=== PATIENT | female | born 1930 | race Hispanic/Latino ===

== ENCOUNTER 2017-10-10 17:03 | Emergency (ER) | payer MEDICARE ==
[2017-10-10 17:40] LABS: Hematocrit 41.1 % (30.3-42.9); Hemoglobin 13.6 gm/dl (10.1-14.3); Mean Corpuscular HGB Conc 33 % (30-34); Mean Corpuscular Hemoglobin 28 pg (28-32); Mean Corpuscular Volume 86 fl (79-97); Platelet Count 226 K/mm3 (140-440); Red Blood Count 4.79 M/mm3 (3.65-5.03); Red Cell Distribution Width 13.2 % (13.2-15.2); White Blood Count 11.3 K/mm3 (4.5-11.0)
[2017-10-10 17:55] LABS: Calcium 9.2 mg/dL (8.4-10.2); Chloride 102.3 mmol/L (98-107); Potassium 4.5 mmol/L (3.6-5.0)
--- NOTE | 2017-10-10 18:16 | Cat Scan Report ---
FINAL REPORT EXAM: CT HEAD/BRAIN WO CON HISTORY: head injury TECHNIQUE: CT examination of the head without IV contrast PRIORS: None. 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 No acute air-fluid level visualized in the included air-filled sinuses. Bone windows demonstrate no acute fracture. There is ventricular and sulcal prominence compatible with global cerebrocortical atrophy. The brain contains no mass, mass effect, hemorrhage, or acute infarct. There is no extra-axial intracranial bleed, brain bleed, or midline shift. 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
[2017-10-10 18:19] LABS: INR 0.93 (0.87-1.13)
[2017-10-10 18:24] LABS: Partial Thromboplastin Time 31.5 Sec. (24.2-36.6)
[2017-10-10] MEDS ORDERED: XYLOCAINE 2% INFILTRATI ONE (19:14)
[2017-10-10] MEDS ORDERED: TYLENOL PO ONE (19:14)
--- NOTE | 2017-10-10 19:20 | Emergency Department Report ---
ED General Adult HPI - General Chief complaint: Head Injury Stated complaint: FALL/LAC TO HEAD Time Seen by Provider: 10/10/17 19:04 Source: patient Mode of arrival: Ambulatory Limitations: No Limitations - History of Present Illness Initial comments: 87-year-old female slip and fall. Patient was stepping over a step in the hallway when she slipped and faell here eval laceration to forehead. Patient states she did not have LOC family states she is at baseline has been acting appropriately no nausea vomiting no headache no neck pain. She is here for evaluation of a 2 cm laceration above the right eyebrow. She is also complaining of right elbow skin tear without bony tenderness. She denies any back pain any neck pain any chest pain and abdominal pain. She denies any focal neuro complaints no headache no weakness or numbness no visual complaintscomplaints. She is also complaining of a pain to the right great toe with contusion. She denies any other complaints at this time she denied chest pain she denied palpitations she denied any loss consciousness. -: Sudden Location: head, face, right, upper extremity, lower extremity Radiation: non-radiation Severity scale (0 -10): 6 Quality: sharp Associated Symptoms: denies: confusion, chest pain, cough, diaphoresis, fever/ chills, headaches, malaise, nausea/vomiting, seizure, shortness of breath, syncope, weakness - Related Data Allergies Allergy/AdvReac Type Severity Reaction Status Date / Time cefuroxime [From Ceftin] Allergy Unknown Verified 10/10/17 17:20 Penicillins Allergy Unknown Verified 10/10/17 17:20 ED Review of Systems ROS: Stated complaint: FALL/LAC TO HEAD Other details as noted in HPI Comment: All other systems reviewed and negative Constitutional: no symptoms reported. denies: diaphoresis, fever, malaise, weakness Eyes: denies: as per HPI, eye pain, eye discharge ENT: denies: dental pain Respiratory: no symptoms reported. denies: shortness of breath, SOB with exertion, SOB at rest Cardiovascular: denies: chest pain, palpitations, dyspnea on exertion, orthopnea , edema, syncope Gastrointestinal: denies: abdominal pain, nausea, vomiting, diarrhea, constipation, hematemesis, melena, hematochezia Musculoskeletal: as per HPI Neurological: denies: headache, weakness, numbness, paresthesias, confusion, abnormal gait, vertigo ED Past Medical Hx - Past Medical History Hx Psychiatric Treatment: Yes (anxiety) Additional medical history: bilateral knee pain,poor circulation,hearing aid - Surgical History Additional Surgical History: Fx left hip, neck surgery, heart stent - Social History Smoking Status: Never Smoker Substance Use Type: None ED Physical Exam - General Limitations: No Limitations General appearance: alert - Head Head exam: Present: other (2 cm laceration to the right eyebrow periorbital contusion and soft tissue swelling to the right eye) - Eye Eye exam: Present: normal appearance, PERRL, EOMI, other (no entrapment noted to the eyeballs and intact OS Bessy no hyphema. Anterior chamber negative) Pupils: Present: normal accommodation - ENT ENT exam: Present: normal exam, normal orophraynx, TM's normal bilaterally - Neck Neck exam: Present: normal inspection, full ROM, other (no midline bony tenderness nexus is negative). Absent: tenderness, meningismus - Respiratory Respiratory exam: Present: normal lung sounds bilaterally. Absent: respiratory distress, wheezes, rales, rhonchi, stridor, chest wall tenderness, accessory muscle use, decreased breath sounds, prolonged expiratory - Cardiovascular Cardiovascular Exam: Present: regular rate. Absent: rubs, gallop - GI/Abdominal GI/Abdominal exam: Present: soft. Absent: distended, tenderness, guarding, rebound, rigid, mass, bruit, pulsatile mass, hernia - Extremities Exam Extremities exam: Present: other (skin tear to the right elbow no bony tenderness. Range of motion neurovascular intact. Toe pain without deformitySkin intact. Extremity exam is within normal limits no crepitus or deformity all extremities are neurovascular intact) - Back Exam Back exam: Present: normal inspection. Absent: tenderness, CVA tenderness (R), CVA tenderness (L), muscle spasm, paraspinal tenderness, vertebral tenderness - Skin Skin exam: Absent: diaphoretic, erythema, urticaria, petechiae, pallor, abrasion , ecchymosis ED Course Vital Signs 10/10/17 10/10/17 17:11 17:18 Temperature 98.3 F 98.3 F Pulse Rate 108 H 108 H Respiratory 18 18 Rate Blood Pressure 145/73 Blood Pressure 145/73 [Left] O2 Sat by Pulse 96 96 Oximetry - Laceration /Wound Repair Right Face Wound Location: face Wound Length (cm): 2 Wound's Depth, Shape: superficial Wound Explored: no foreign body removed Irrigated w/ Saline (ccs): 150 Betadine Prep?: No Anesthesia: 1% Lidocaine Volume Anesthetic (ccs): 10 Wound Repaired With: sutures Suture Size/Type: 5:0, nylon Number of Sutures: 5 Layer Closure?: No Sterile Dressing Applied?: Yes Progress: No complications ED Medical Decision Making - Lab Data Result diagrams: 10/10/17 17:27 10/10/17 17:26 - EKG Data EKG shows normal: sinus rhythm, ST-T waves (no acute ischemic change) Rate: normal - Radiology Data Radiology results: report reviewed - Medical Decision Making Patient was sutured neck was cleared . X-ray studies are unremarkable including a unremarkable CT of the brain CT the orbits plain films study of the foot shows no fracture. Patient has soft tissue swelling and hematoma without evidence of fracture patient still for outpatient follow-up [place] Coma Scale is 15 neuro is nonfocal Critical care attestation.: If time is entered above; I have spent that time in minutes in the direct care of this critically ill patient, excluding procedure time. ED Disposition Clinical Impression: Closed head injury, Laceration, Skin tear of elbow without complication, Contusion Disposition: DC-01 TO HOME OR SELFCARE Is pt being admited?: No Condition: Stable Instructions: Suture Care (ED), Concussion (ED), Skin Tear (ED) Additional Instructions: Suture removal 5 days return if new or alarming symptoms C regular doctor in 2 days Referrals: MILO YOUNG MD [Primary Care Provider] - 3-5 Days Time of Disposition: 21:50
[2017-10-10 19:32] LABS: Bacteria,Urine 1+ /HPF (Negative); Bilirubin,Urine NEG (Negative); Blood,Urine NEG (Negative); Ketones,Urine NEG (Negative); Leukocyte Esterase,Urine MOD (Negative); Mucus,Urine FEW /HPF; Nitrite,Urine POS (Negative); Protein,Urine <15 mg/dL mg/dL (Negative); Urobilinogen,Urine < 2.0 mg/dL (<2.0)
--- NOTE | 2017-10-10 20:10 | XRay Report ---
FINAL REPORT EXAM: XR FOOT 3+V RT HISTORY: rt foot pain/fall TECHNIQUE: AP, lateral, and oblique views of the right foot PRIORS: None. FINDINGS: There is no evidence for acute fracture or dislocation. No soft tissue swelling or radiopaque foreign bodies are seen. Bony mineralization is osteopenic. Joint spaces are maintained. Large spurs are present dorsally off the tarsal bones. IMPRESSION: No acute soft tissue or bony abnormality noted.
[2017-10-10] MEDS ORDERED: HYDROGEN PEROXIDE ONE (20:21)
--- NOTE | 2017-10-10 21:28 | Cat Scan Report ---
FINAL REPORT PROCEDURE: CT ORBIT/EAR/FOSSA WO CON TECHNIQUE: Computerized axial tomography of the orbits was performed without contrast material. HISTORY: Fall. COMPARISON: CT scan dated 10/10/2017. FINDINGS: Bones and sinuses: Normal. Globes: Mild soft tissue swelling and tiny foci of soft tissue air about the right supraorbital region. Moderate right periorbital soft tissue swelling. More focal right periorbital soft tissue collection at the level of the lateral orbital wall measuring 16 x 7 millimeters. Bilateral lens surgery. Extraocular muscles: Normal. Optic nerves: Normal. Lacrimal glands: Normal. Other: Mild atrophy. Mild rightward septal deviation. Mild atherosclerosis. IMPRESSION: Soft tissue swelling/laceration in the right supraorbital region with moderate right periorbital soft tissue swelling. Possible small right periorbital soft tissue hematoma. No CT evidence of displaced facial bone fracture.
[2017-10-10 22:16] VITALS: BP 141/69
== END 2017-10-10 22:23 | disposition home or self-care (01) ==
LOC: ED 17:03
DX: S01.81XA Laceration without foreign body of other part of head, initial encounter (principal); S51.011A Laceration without foreign body of right elbow, initial encounter; S00.11XA Contusion of right eyelid and periocular area, initial encounter; Z88.1 Allergy status to other antibiotic agents; Z88.0 Allergy status to penicillin; W01.0XXA Fall on same level from slipping, tripping and stumbling without subsequent striking against object, initial encounter; Y93.89 Activity, other specified; Y99.8 Other external cause status; Y92.89 Other specified places as the place of occurrence of the external cause
CPT/HCPCS: 36415; 70450; 70480; 80048; 81001; 85027; 85610; 85730; 93005; 93010

== ENCOUNTER 2021-04-28 18:33 | Emergency (ER) | payer MEDICARE ==
[2021-04-28] MEDS ORDERED: SODIUM CHLORIDE 0.9% 500 ML 500 ML IV ONE (18:57)
--- NOTE | 2021-04-28 18:57 | Emergency Department Report ---
ED Altered Mental Status HPI - General Stated Complaint: HTN/LETHARGY PUI?: No Time Seen by Provider: 04/28/21 18:51 Source: patient, EMS Mode of arrival: Stretcher Limitations: No Limitations - History of Present Illness Initial Comments: Chief complaint: Lethargy hypertension HPI: This is an 89-year-old female with history of hypertension, diabetes m ellitus, coronary artery disease status post PTCA who presents with lethargy and hypertension. History obtained from EMS. Son provided history. Patient reports soreness, mental illness. MD Complaint: other ("Lethargy" according to EMS report) -: days(s) (1 1 day) Severity: mild Consistency of Symptoms: waxing and waning Context: diabetes Associated Symptoms: other (Generalized malaise, body aches) - Related Data Previous Rx's Medication Instructions Recorded Last Taken Type Aspirin EC [Ecotrin] 325 mg PO QDAY #30 tablet 04/24/18 Unknown Rx ALPRAZolam [Xanax TAB] 0.25 mg PO BID PRN #24 tablet 08/05/20 Unknown Rx Aspirin [Aspirin BABY CHEW TAB] 81 mg PO QDAY #100 tab.chew 08/05/20 Unknown Rx Divalproex Sprinkle [Depakote 125 mg PO BID #60 capsule 08/05/20 Unknown Rx Sprinkle] Escitalopram [Lexapro] 10 mg PO DAILY #30 08/05/20 Unknown Rx Gabapentin 100 mg PO BID #60 cap 08/05/20 Unknown Rx Melatonin [Melatonin 10MG TAB] 10 mg PO HS #30 08/05/20 Unknown Rx Metoprolol [Lopressor TAB] 50 mg PO BID #60 tablet 08/05/20 Unknown Rx Valsartan [Diovan] 160 mg PO QDAY #30 tablet 08/05/20 Unknown Rx traMADoL [Ultram 50 MG tab] 25 mg PO BID PRN #60 08/05/20 Unknown Rx Allergies Allergy/AdvReac Type Severity Reaction Status Date / Time cefuroxime [From Ceftin] Allergy Unknown Verified 10/10/17 17:20 Penicillins Allergy Unknown Verified 10/10/17 17:20 ED Review of Systems ROS: Stated complaint: HTN/LETHARGY Other details as noted in HPI Comment: All other systems reviewed and negative Constitutional: malaise. denies: chills, fever Respiratory: denies: cough, shortness of breath Cardiovascular: denies: chest pain Gastrointestinal: denies: abdominal pain, nausea, vomiting ED Past Medical Hx - Past Medical History Previous Medical History?: Yes Hx Hypertension: Yes Hx Heart Attack/AMI: Yes (+ stent) Hx Diabetes: Yes Hx Arthritis: Yes Hx Psychiatric Treatment: Yes (anxiety) Additional medical history: bilateral knee pain,poor circulation,hearing aid - Surgical History Past Surgical History?: Yes Hx Coronary Stent: Yes Additional Surgical History: Fx left hip, neck surgery - Family History Family history: hypertension - Social History Smoking Status: Never Smoker Substance Use Type: None - Medications Home Medications: Home Medications Medication Instructions Recorded Confirmed Last Taken Type Aspirin EC [Ecotrin] 325 mg PO QDAY #30 tablet 04/24/18 08/01/20 Unknown Rx ALPRAZolam [Xanax TAB] 0.25 mg PO BID PRN #24 tablet 08/05/20 Unknown Rx Aspirin [Aspirin BABY CHEW TAB] 81 mg PO QDAY #100 tab.chew 08/05/20 Unknown Rx Divalproex Sprinkle [Depakote 125 mg PO BID #60 capsule 08/05/20 Unknown Rx Sprinkle] Escitalopram [Lexapro] 10 mg PO DAILY #30 08/05/20 Unknown Rx Gabapentin 100 mg PO BID #60 cap 08/05/20 Unknown Rx Melatonin [Melatonin 10MG TAB] 10 mg PO HS #30 08/05/20 Unknown Rx Metoprolol [Lopressor TAB] 50 mg PO BID #60 tablet 08/05/20 Unknown Rx Valsartan [Diovan] 160 mg PO QDAY #30 tablet 08/05/20 Unknown Rx traMADoL [Ultram 50 MG tab] 25 mg PO BID PRN #60 08/05/20 Unknown Rx ED Physical Exam - General Limitations: No Limitations General appearance: alert, in no apparent distress, other (No acute distress answers questions GCS 15 alert and oriented x3) - Head Head exam: Present: atraumatic, normocephalic - Eye Eye exam: Present: normal appearance - ENT ENT exam: Present: mucous membranes moist - Neck Neck exam: Present: normal inspection, full ROM. Absent: tenderness, meningis mus - Respiratory Respiratory exam: Present: normal lung sounds bilaterally. Absent: respiratory distress, wheezes, rales, rhonchi - Cardiovascular Cardiovascular Exam: Present: regular rate, normal rhythm, normal heart sounds. Absent: systolic murmur, diastolic murmur, rubs, gallop - GI/Abdominal GI/Abdominal exam: Present: soft. Absent: distended, tenderness, guarding, rebound - Extremities Exam Extremities exam: Present: pedal edema - Neurological Exam Neurological exam: Present: alert, oriented X3 - Psychiatric Psychiatric exam: Present: normal affect, normal mood - Skin Skin exam: Present: warm, dry, intact, normal color. Absent: rash ED Course Vital Signs 04/28/21 20:01 Temperature 98.7 F Pulse Rate 92 H Respiratory 18 Rate Blood Pressure 191/83 O2 Sat by Pulse 98 Oximetry - Lab Data Result diagrams: 04/28/21 19:28 04/28/21 19:28 Lab Results 04/28/21 04/28/21 04/28/21 Range/Units 19:28 19:28 19:28 WBC 9.2 (4.5-11.0) K/mm3 RBC 4.82 (3.65-5.03) M/mm3 Hgb 13.3 (10.1-14.3) gm/dl Hct 40.1 (30.3-42.9) % MCV 83 (79-97) fl MCH 28 (28-32) pg MCHC 33 (30-34) % RDW 13.4 (13.2-15.2) % Plt Count 227 (140-440) K/mm3 Lymph % (Auto) 26.0 (13.4-35.0) % Barren % (Auto) 7.7 H (0.0-7.3) % Eos % (Auto) 1.5 (0.0-4.3) % Baso % (Auto) 0.4 (0.0-1.8) % Lymph # (Auto) 2.4 (1.2-5.4) K/mm3 Barren # (Auto) 0.7 (0.0-0.8) K/mm3 Eos # (Auto) 0.1 (0.0-0.4) K/mm3 Baso # (Auto) 0.0 (0.0-0.1) K/mm3 Seg Neutrophils % 64.4 (40.0-70.0) % Seg Neutrophils # 5.9 (1.8-7.7) K/mm3 Sodium 139 (137-145) mmol/L Potassium 4.3 (3.6-5.0) mmol/L Chloride 102.5 (98-107) mmol/L Carbon Dioxide 25 (22-30) mmol/L Anion Gap 16 mmol/L BUN 22 H (7-17) mg/dL Creatinine 1.3 H (0.6-1.2) mg/dL Estimated GFR 39 ml/min BUN/Creatinine Ratio 17 % Glucose 123 H (65-100) mg/dL Calcium 9.3 (8.4-10.2) mg/dL Phosphorus 3.10 (2.5-4.5) mg/dL Magnesium 1.80 (1.7-2.3) mg/dL Troponin T < 0.010 (0.00-0.029) ng/mL NT-Pro-B Natriuret Pep 1066 H (0-900) pg/mL Urine Color (Yellow) Urine Turbidity (Clear) Urine pH (5.0-7.0) Ur Specific [place] (1.003-1.030) Urine Protein (Negative) mg/dL Urine Glucose (UA) (Negative) mg/dL Urine Ketones (Negative) mg/dL Urine Blood (Negative) Urine Nitrite (Negative) Urine Bilirubin (Negative) Urine Urobilinogen (<2.0) mg/dL Ur Leukocyte Esterase (Negative) Urine WBC (Auto) (0.0-6.0) /HPF Urine RBC (Auto) (0.0-6.0) /HPF U Epithel Cells (Auto) (0-13.0) /HPF Urine Bacteria (Auto) (Negative) /HPF Urine Mucus /HPF 04/28/21 Range/Units Unknown WBC (4.5-11.0) K/mm3 RBC (3.65-5.03) M/mm3 Hgb (10.1-14.3) gm/dl Hct (30.3-42.9) % MCV (79-97) fl MCH (28-32) pg MCHC (30-34) % RDW (13.2-15.2) % Plt Count (140-440) K/mm3 Lymph % (Auto) (13.4-35.0) % Barren % (Auto) (0.0-7.3) % Eos % (Auto) (0.0-4.3) % Baso % (Auto) (0.0-1.8) % Lymph # (Auto) (1.2-5.4) K/mm3 Barren # (Auto) (0.0-0.8) K/mm3 Eos # (Auto) (0.0-0.4) K/mm3 Baso # (Auto) (0.0-0.1) K/mm3 Seg Neutrophils % (40.0-70.0) % Seg Neutrophils # (1.8-7.7) K/mm3 Sodium (137-145) mmol/L Potassium (3.6-5.0) mmol/L Chloride (98-107) mmol/L Carbon Dioxide (22-30) mmol/L Anion Gap mmol/L BUN (7-17) mg/dL Creatinine (0.6-1.2) mg/dL Estimated GFR ml/min BUN/Creatinine Ratio % Glucose (65-100) mg/dL Calcium (8.4-10.2) mg/dL Phosphorus (2.5-4.5) mg/dL Magnesium (1.7-2.3) mg/dL Troponin T (0.00-0.029) ng/mL NT-Pro-B Natriuret Pep (0-900) pg/mL Urine Color Straw (Yellow) Urine Turbidity Clear (Clear) Urine pH 8.0 H (5.0-7.0) Ur Specific [place] 1.010 (1.003-1.030) Urine Protein <15 mg/dl (Negative) mg/dL Urine Glucose (UA) Neg (Negative) mg/dL Urine Ketones Neg (Negative) mg/dL Urine Blood Neg (Negative) Urine Nitrite Neg (Negative) Urine Bilirubin Neg (Negative) Urine Urobilinogen < 2.0 (<2.0) mg/dL Ur Leukocyte Esterase Neg (Negative) Urine WBC (Auto) 3.0 (0.0-6.0) /HPF Urine RBC (Auto) 1.0 (0.0-6.0) /HPF U Epithel Cells (Auto) 3.0 (0-13.0) /HPF Urine Bacteria (Auto) 1+ (Negative) /HPF Urine Mucus Few /HPF - EKG Data -: EKG Interpreted by Mi EKG shows normal: sinus rhythm, axis Rate: normal Interpretation: nonspecific ST-T wave aubrey 04/28/21 20:39 EKG obtained 1950 EKG interpreted by me Normal sinus rhythm rate 70 bpm normal axis normal QTC normal intervals no ST elevation nonspecific T wave pattern - Radiology Data Radiology results: report reviewed Chest radiograph: No significant change from prior exam according to radiology impression - Medical Decision Making Patient presents with hypertension and reported lethargy. She has been alert oriented appropriate. She insisted on being discharged. Discharge is appropriate without acute medical condition other than elevated blood pressure. CBC chemistry urinalysis all within normal limits. BNP slightly elevated. According to radiology report there is no acute abnormality or significant change on chest radiograph. Patient is discharged home. No evidence of endorgan hypertensive damage. Critical care attestation.: If time is entered above; I have spent that time in minutes in the direct care of this critically ill patient, excluding procedure time. ED Disposition Clinical Impression: Hypertensive urgency Disposition: DC-01 TO HOME OR SELFCARE Is pt being admited?: No Does the pt Need Aspirin: No Condition: Stable Instructions: Hypertension, Adult, [id number]
[2021-04-28 19:37] LABS: Basophils % (Auto) 0.4 % (0.0-1.8); Eosinophils # (Auto) 0.1 K/mm3 (0.0-0.4); Eosinophils % (Auto) 1.5 % (0.0-4.3); Hematocrit 40.1 % (30.3-42.9); Hemoglobin 13.3 gm/dl (10.1-14.3); Lymphocytes # (Auto) 2.4 K/mm3 (1.2-5.4); Mean Corpuscular HGB Conc 33 % (30-34); Mean Corpuscular Volume 83 fl (79-97); Monocytes # (Auto) 0.7 K/mm3 (0.0-0.8); Monocytes % (Auto) 7.7 % (0.0-7.3); Platelet Count 227 K/mm3 (140-440); Red Blood Count 4.82 M/mm3 (3.65-5.03); Red Cell Distribution Width 13.4 % (13.2-15.2)
[2021-04-28 20:04] LABS: BUN/Creatinine Ratio 17; Blood Urea Nitrogen 22 mg/dL (7-17); Calcium 9.3 mg/dL (8.4-10.2); Hemolysis Index 32
--- NOTE | 2021-04-28 20:40 | XRay Report ---
CHEST 1 VIEW 04/28/2021 7:32 PM INDICATION / CLINICAL INFORMATION: Weakness. COMPARISON: 07/28/20. FINDINGS: SUPPORT DEVICES: None. HEART / MEDIASTINUM: The heart size is borderline. LUNGS / PLEURA: No significant pulmonary or pleural abnormality. No pneumothorax. ADDITIONAL FINDINGS: There are surgical changes in the lower cervical spine. 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 IMPRESSION: No acute abnormality or significant change. Signer Name: Nathan Bailey MD Signed: 04/28/2021 8:35 PM Workstation Name: [id number]
[2021-04-28 22:24] LABS: Bacteria,Urine 1+ /HPF (Negative); Bilirubin,Urine NEG (Negative); Blood,Urine NEG (Negative); Color,Urine Straw (Yellow); Mucus,Urine FEW /HPF; Protein,Urine <15 mg/dL mg/dL (Negative); Urobilinogen,Urine < 2.0 mg/dL (<2.0)
[2021-04-29 00:18] VITALS: BP 164/81
--- NOTE | 2021-04-29 18:01 | Electrocardiograph Report ---
[facility] Test Date: 2021-04-28 Test Time: 19:51:44 Pat Name: CARMINE MARTÍNEZ Department: Room: Gender: F Network Field Engineer: VICENTE : [id number] Requested By: MONET LOPEZ Order Number: [id number] Reading MD: Tres Spencer Measurements Intervals [place] Rate: 69 P: 62 TN: 200 QRS: -23 QRSD: 93 T: -2 QT: 431 QTc: 474 Interpretive Statements Sinus rhythm No previous ECG available for comparison Electronically Signed On 04-29-2021 18:01:05 EDT by Tres Spencer
== END 2021-04-29 00:18 | disposition home or self-care (01) ==
LOC: ED 18:33
DX: I16.0 Hypertensive urgency (principal); I10 Essential (primary) hypertension; I25.2 Old myocardial infarction; M19.90 Unspecified osteoarthritis, unspecified site; F41.9 Anxiety disorder, unspecified; Z79.899 Other long term (current) drug therapy; Z88.8 Allergy status to other drugs, medicaments and biological substances; Z88.0 Allergy status to penicillin; Z98.890 Other specified postprocedural states
CPT/HCPCS: 36415; 71045; 80048; 81001; 83735; 83880; 84100; 84484; 85025; 93005

== ENCOUNTER 2021-04-30 15:19 | Emergency (ER) | payer MEDICARE ==
[2021-04-30 16:09] LABS: Basophils % (Auto) 0.5 % (0.0-1.8); Eosinophils # (Auto) 0.1 K/mm3 (0.0-0.4); Eosinophils % (Auto) 1.3 % (0.0-4.3); Hematocrit 38.7 % (30.3-42.9); Hemoglobin 12.9 gm/dl (10.1-14.3); Lymphocytes # (Auto) 1.9 K/mm3 (1.2-5.4); Lymphocytes % (Auto) 22.6 % (13.4-35.0); Mean Corpuscular HGB Conc 33 % (30-34); Mean Corpuscular Volume 84 fl (79-97); Monocytes # (Auto) 0.6 K/mm3 (0.0-0.8); Platelet Count 205 K/mm3 (140-440); Red Blood Count 4.62 M/mm3 (3.65-5.03); Red Cell Distribution Width 13.4 % (13.2-15.2)
[2021-04-30 16:33] LABS: Calcium 9.7 mg/dL (8.4-10.2)
--- NOTE | 2021-04-30 16:42 | XRay Report ---
CHEST 1 VIEW 04/30/2021 4:05 PM INDICATION / CLINICAL INFORMATION: weakness. COMPARISON: 04/28/2021 and 04/23/2018 FINDINGS: SUPPORT DEVICES: None. HEART / MEDIASTINUM: No significant abnormality. LUNGS / PLEURA: There is mild pulmonary vascular indistinctness. No focal consolidation No pneumothor ax. ADDITIONAL FINDINGS: Partial visualization lower cervical hardware IMPRESSION: 1. Mild pulmonary edema. Signer Name: Ifeanyi Farah DO Signed: 04/30/2021 4:37 PM Workstation Name: [id number]
[2021-04-30 17:01] LABS: Bilirubin,Urine NEG (Negative); Blood,Urine NEG (Negative); Color,Urine Yellow (Yellow); Hyaline Casts,Urine 1 /LPF; Protein,Urine <15 mg/dL mg/dL (Negative); RBC,Urine < 1.0 /HPF (0.0-6.0)
--- NOTE | 2021-04-30 18:03 | Emergency Department Report ---
ED General Adult HPI - General Chief complaint: Medical Clearance Stated complaint: GENERAL SICKNESS Time Seen by Provider: 04/30/21 15:35 Source: EMS Mode of arrival: Stretcher Limitations: Physical Limitation - History of Present Illness Initial comments: Patient presents to the emergency department via EMS for generalized sickness. Patient has no complaints besides complaining of not feeling well. When asked details the patient is not able to provide details for her chief complaint. Patient denies chest pain, shortness breath, or abdominal pain. Patient also denies a headache. Patient was here recently for the same chief complaint. -: unknown Severity scale (0 -10): 0 Consistency: constant Improves with: none Worsens with: none Associated Symptoms: denies other symptoms. denies: chest pain, loss of appetite, nausea/vomiting, shortness of breath, weakness - Related Data Previous Rx's Medication Instructions Recorded Last Taken Type Aspirin EC [Ecotrin] 325 mg PO QDAY #30 tablet 04/24/18 Unknown Rx ALPRAZolam [Xanax TAB] 0.25 mg PO BID PRN #24 tablet 08/05/20 Unknown Rx Aspirin [Aspirin BABY CHEW TAB] 81 mg PO QDAY #100 tab.chew 08/05/20 Unknown Rx Divalproex Sprinkle [Depakote 125 mg PO BID #60 capsule 08/05/20 Unknown Rx Sprinkle] Escitalopram [Lexapro] 10 mg PO DAILY #30 08/05/20 Unknown Rx Gabapentin 100 mg PO BID #60 cap 08/05/20 Unknown Rx Melatonin [Melatonin 10MG TAB] 10 mg PO HS #30 08/05/20 Unknown Rx Metoprolol [Lopressor TAB] 50 mg PO BID #60 tablet 08/05/20 Unknown Rx Valsartan [Diovan] 160 mg PO QDAY #30 tablet 08/05/20 Unknown Rx traMADoL [Ultram 50 MG tab] 25 mg PO BID PRN #60 08/05/20 Unknown Rx Allergies Allergy/AdvReac Type Severity Reaction Status Date / Time cefuroxime [From Ceftin] Allergy Unknown Verified 10/10/17 17:20 Penicillins Allergy Unknown Verified 10/10/17 17:20 ED Review of Systems ROS: Stated complaint: GENERAL SICKNESS Other details as noted in HPI Comment: All other systems reviewed and negative Constitutional: denies: chills, fever Eyes: denies: eye pain, eye discharge, vision change ENT: denies: ear pain, throat pain Respiratory: denies: cough, shortness of breath, wheezing Cardiovascular: denies: chest pain, palpitations Endocrine: no symptoms reported Gastrointestinal: denies: abdominal pain, nausea, diarrhea Genitourinary: denies: urgency, dysuria, discharge Musculoskeletal: denies: back pain, joint swelling, arthralgia Skin: denies: rash, lesions Neurological: denies: headache, weakness, paresthesias Psychiatric: denies: anxiety, depression Hematological/Lymphatic: denies: easy bleeding, easy bruising ED Past Medical Hx - Past Medical History Previous Medical History?: Yes Hx Hypertension: Yes Hx Heart Attack/AMI: Yes (+ stent) Hx Diabetes: Yes Hx Arthritis: Yes Hx Psychiatric Treatment: Yes (anxiety) Hx Dementia: Yes (poss early stages??) Additional medical history: bilateral knee pain,poor circulation,hearing aid - Surgical History Hx Coronary Stent: Yes Additional Surgical History: Fx left hip, neck surgery - Social History Smoking Status: Never Smoker Substance Use Type: None - Medications Home Medications: Home Medications Medication Instructions Recorded Confirmed Last Taken Type Aspirin EC [Ecotrin] 325 mg PO QDAY #30 tablet 04/24/18 08/01/20 Unknown Rx ALPRAZolam [Xanax TAB] 0.25 mg PO BID PRN #24 tablet 08/05/20 Unknown Rx Aspirin [Aspirin BABY CHEW TAB] 81 mg PO QDAY #100 tab.chew 08/05/20 Unknown Rx Divalproex Sprinkle [Depakote 125 mg PO BID #60 capsule 08/05/20 Unknown Rx Sprinkle] Escitalopram [Lexapro] 10 mg PO DAILY #30 08/05/20 Unknown Rx Gabapentin 100 mg PO BID #60 cap 08/05/20 Unknown Rx Melatonin [Melatonin 10MG TAB] 10 mg PO HS #30 08/05/20 Unknown Rx Metoprolol [Lopressor TAB] 50 mg PO BID #60 tablet 08/05/20 Unknown Rx Valsartan [Diovan] 160 mg PO QDAY #30 tablet 08/05/20 Unknown Rx traMADoL [Ultram 50 MG tab] 25 mg PO BID PRN #60 08/05/20 Unknown Rx ED Physical Exam - General Limitations: Physical Limitation General appearance: alert, in no apparent distress - Head Head exam: Present: atraumatic, normocephalic - Eye Eye exam: Present: normal appearance, PERRL, EOMI - ENT ENT exam: Present: mucous membranes moist - Neck Neck exam: Present: normal inspection - Respiratory Respiratory exam: Present: normal lung sounds bilaterally. Absent: respiratory distress, wheezes, rales - Cardiovascular Cardiovascular Exam: Present: regular rate, normal rhythm. Absent: systolic murmur, diastolic murmur, rubs, gallop - GI/Abdominal GI/Abdominal exam: Present: soft, normal bowel sounds. Absent: distended, tenderness - Extremities Exam Extremities exam: Present: normal inspection - Back Exam Back exam: Present: normal inspection - Neurological Exam Neurological exam: Present: alert, oriented X3, CN II-XII intact. Absent: motor sensory deficit - Psychiatric Psychiatric exam: Present: normal affect, normal mood - Skin Skin exam: Present: warm, dry, intact, normal color. Absent: rash ED Course Vital Signs 04/30/21 15:49 Temperature 98.0 F Pulse Rate 72 Respiratory 18 Rate Blood Pressure 148/69 [Left] O2 Sat by Pulse 94 Oximetry ED Medical Decision Making - Lab Data Result diagrams: 04/30/21 15:54 04/30/21 15:54 Lab Results 04/30/21 04/30/21 04/30/21 Range/Units 15:54 15:54 15:54 WBC 8.5 (4.5-11.0) K/mm3 RBC 4.62 (3.65-5.03) M/mm3 Hgb 12.9 (10.1-14.3) gm/dl Hct 38.7 (30.3-42.9) % MCV 84 (79-97) fl MCH 28 (28-32) pg MCHC 33 (30-34) % RDW 13.4 (13.2-15.2) % Plt Count 205 (140-440) K/mm3 Lymph % (Auto) 22.6 (13.4-35.0) % [place] % (Auto) 7.0 (0.0-7.3) % Eos % (Auto) 1.3 (0.0-4.3) % Baso % (Auto) 0.5 (0.0-1.8) % Lymph # (Auto) 1.9 (1.2-5.4) K/mm3 [place] # (Auto) 0.6 (0.0-0.8) K/mm3 Eos # (Auto) 0.1 (0.0-0.4) K/mm3 Baso # (Auto) 0.0 (0.0-0.1) K/mm3 Seg Neutrophils % 68.6 (40.0-70.0) % Seg Neutrophils # 5.8 (1.8-7.7) K/mm3 Sodium 137 (137-145) mmol/L Potassium 4.0 (3.6-5.0) mmol/L Chloride 99.9 (98-107) mmol/L Carbon Dioxide 24 (22-30) mmol/L Anion Gap 17 mmol/L BUN 26 H (7-17) mg/dL Creatinine 1.3 H (0.6-1.2) mg/dL Estimated GFR 39 ml/min BUN/Creatinine Ratio 20 % Glucose 153 H (65-100) mg/dL Calcium 9.7 (8.4-10.2) mg/dL Total Bilirubin 0.60 (0.1-1.2) mg/dL AST 28 (5-40) units/L ALT 12 (7-56) units/L Alkaline Phosphatase 58 (35-129) units/L Troponin T 0.012 (0.00-0.029) ng/mL NT-Pro-B Natriuret Pep 393.2 (0-900) pg/mL Total Protein 6.2 L (6.3-8.2) g/dL Albumin 4.0 (3.9-5) g/dL Albumin/Globulin Ratio 1.8 % Urine Color (Yellow) Urine Turbidity (Clear) Urine pH (5.0-7.0) Ur Specific [place] (1.003-1.030) Urine Protein (Negative) mg/dL Urine Glucose (UA) (Negative) mg/dL Urine Ketones (Negative) mg/dL Urine Blood (Negative) Urine Nitrite (Negative) Urine Bilirubin (Negative) Urine Urobilinogen (<2.0) mg/dL Ur Leukocyte Esterase (Negative) Urine WBC (Auto) (0.0-6.0) /HPF Urine RBC (Auto) (0.0-6.0) /HPF U Epithel Cells (Auto) (0-13.0) /HPF Hyaline Casts /LPF Salicylates < 0.3 L (2.8-20.0) mg/dL Acetaminophen (10.0-30.0) ug/mL Plasma/Serum Alcohol (0-0.07) % 04/30/21 04/30/21 04/30/21 Range/Units 15:54 15:54 17:24 WBC (4.5-11.0) K/mm3 RBC (3.65-5.03) M/mm3 Hgb (10.1-14.3) gm/dl Hct (30.3-42.9) % MCV (79-97) fl MCH (28-32) pg MCHC (30-34) % RDW (13.2-15.2) % Plt Count (140-440) K/mm3 Lymph % (Auto) (13.4-35.0) % [place] % (Auto) (0.0-7.3) % Eos % (Auto) (0.0-4.3) % Baso % (Auto) (0.0-1.8) % Lymph # (Auto) (1.2-5.4) K/mm3 [place] # (Auto) (0.0-0.8) K/mm3 Eos # (Auto) (0.0-0.4) K/mm3 Baso # (Auto) (0.0-0.1) K/mm3 Seg Neutrophils % (40.0-70.0) % Seg Neutrophils # (1.8-7.7) K/mm3 Sodium (137-145) mmol/L Potassium (3.6-5.0) mmol/L Chloride (98-107) mmol/L Carbon Dioxide (22-30) mmol/L Anion Gap mmol/L BUN (7-17) mg/dL Creatinine (0.6-1.2) mg/dL Estimated GFR ml/min BUN/Creatinine Ratio % Glucose (65-100) mg/dL Calcium (8.4-10.2) mg/dL Total Bilirubin (0.1-1.2) mg/dL AST (5-40) units/L ALT (7-56) units/L Alkaline Phosphatase (35-129) units/L Troponin T < 0.010 (0.00-0.029) ng/mL NT-Pro-B Natriuret Pep (0-900) pg/mL Total Protein (6.3-8.2) g/dL Albumin (3.9-5) g/dL Albumin/Globulin Ratio % Urine Color (Yellow) Urine Turbidity (Clear) Urine pH (5.0-7.0) Ur Specific [place] (1.003-1.030) Urine Protein (Negative) mg/dL Urine Glucose (UA) (Negative) mg/dL Urine Ketones (Negative) mg/dL Urine Blood (Negative) Urine Nitrite (Negative) Urine Bilirubin (Negative) Urine Urobilinogen (<2.0) mg/dL Ur Leukocyte Esterase (Negative) Urine WBC (Auto) (0.0-6.0) /HPF Urine RBC (Auto) (0.0-6.0) /HPF U Epithel Cells (Auto) (0-13.0) /HPF Hyaline Casts /LPF Salicylates (2.8-20.0) mg/dL Acetaminophen 5.0 L (10.0-30.0) ug/mL Plasma/Serum Alcohol < 0.01 (0-0.07) % 04/30/21 Range/Units Unknown WBC (4.5-11.0) K/mm3 RBC (3.65-5.03) M/mm3 Hgb (10.1-14.3) gm/dl Hct (30.3-42.9) % MCV (79-97) fl MCH (28-32) pg MCHC (30-34) % RDW (13.2-15.2) % Plt Count (140-440) K/mm3 Lymph % (Auto) (13.4-35.0) % [place] % (Auto) (0.0-7.3) % Eos % (Auto) (0.0-4.3) % Baso % (Auto) (0.0-1.8) % Lymph # (Auto) (1.2-5.4) K/mm3 [place] # (Auto) (0.0-0.8) K/mm3 Eos # (Auto) (0.0-0.4) K/mm3 Baso # (Auto) (0.0-0.1) K/mm3 Seg Neutrophils % (40.0-70.0) % Seg Neutrophils # (1.8-7.7) K/mm3 Sodium (137-145) mmol/L Potassium (3.6-5.0) mmol/L Chloride (98-107) mmol/L Carbon Dioxide (22-30) mmol/L Anion Gap mmol/L BUN (7-17) mg/dL Creatinine (0.6-1.2) mg/dL Estimated GFR ml/min BUN/Creatinine Ratio % Glucose (65-100) mg/dL Calcium (8.4-10.2) mg/dL Total Bilirubin (0.1-1.2) mg/dL AST (5-40) units/L ALT (7-56) units/L Alkaline Phosphatase (35-129) units/L Troponin T (0.00-0.029) ng/mL NT-Pro-B Natriuret Pep (0-900) pg/mL Total Protein (6.3-8.2) g/dL Albumin (3.9-5) g/dL Albumin/Globulin Ratio % Urine Color Yellow (Yellow) Urine Turbidity Clear (Clear) Urine pH 7.0 (5.0-7.0) Ur Specific [place] 1.014 (1.003-1.030) Urine Protein <15 mg/dl (Negative) mg/dL Urine Glucose (UA) Neg (Negative) mg/dL Urine Ketones Tr (Negative) mg/dL Urine Blood Neg (Negative) Urine Nitrite Neg (Negative) Urine Bilirubin Neg (Negative) Urine Urobilinogen 2.0 (<2.0) mg/dL Ur Leukocyte Esterase Neg (Negative) Urine WBC (Auto) 1.0 (0.0-6.0) /HPF Urine RBC (Auto) < 1.0 (0.0-6.0) /HPF U Epithel Cells (Auto) 1.0 (0-13.0) /HPF Hyaline Casts 1 /LPF Salicylates (2.8-20.0) mg/dL Acetaminophen (10.0-30.0) ug/mL Plasma/Serum Alcohol (0-0.07) % - EKG Data -: EKG Interpreted by Oh EKG shows normal: sinus rhythm - EKG Data Interpretation: other (Nonspecific T wave abnormalities, normal axis, normal intervals) - Radiology Data Radiology results: report reviewed - Medical Decision Making Patient laboratory values and imaging were done Patient's creatinine is 1.3 today which is the same as it was on her prior visit. Patient's creatinine was 1.6 in July. Patient's chest x-ray today states there is mild pulmonary edema but when compared to the chest x-ray from the 11 of this month it appears to be the same. Repeat examination of the patient does not show any physical exam findings consistent with congestive heart failure. There is no rales on exam and no pitting edema. Patient denies have a history congestive heart failure. When I went to discuss results with the patient she stated she wanted to go home. Upon further discussion and taking deeper into the patient's history she tells me that her explanation of not feeling well is fatigue Critical care attestation.: If time is entered above; I have spent that time in minutes in the direct care of this critically ill patient, excluding procedure time. ED Disposition Clinical Impression: Fatigue Disposition: DC-01 TO HOME OR SELFCARE Is pt being admited?: No Does the pt Need Aspirin: No Condition: Stable Instructions: Fatigue Additional Instructions: return if worse Referrals: PRIMARY CAREMD [Primary Care Provider] - 3-5 Days MARGARET REDDY MD [Staff Physician] - 3-5 Days Time of Disposition: 19:03
--- NOTE | 2021-05-01 10:36 | Event Note ---
Date: 05/01/21 89-year-old female with history of fairly advanced dementia who initially presented for not feeling well. She was seen by my colleague and underwent full work-up which revealed only mild pulmonary edema on her chest x-ray. She was medically cleared and was discharged home, however, the patient's family refused to take her. Therefore case management was consulted and the patient was moved to the behavioral health unit for her safety. I went and saw the patient myself and she was alert but confused. She was coughing frequently but upon lung auscultation bilateral lung bass are clear. She is afebrile and with stable vital signs. We will reconcile her home medications and restart them. Currently awaiting case management consult and recommendations regarding disposition.
[2021-05-01] MEDS ORDERED: BENZONATATE 100 MG CAP PO PRN (14:17)
[2021-05-01] MEDS ORDERED: LORazepam 1 MG TAB PO ONE (14:42)
[2021-05-01] MEDS ORDERED: ZIPRASIDONE MESYLATE 20 MG VIAL IM ONE (23:10)
--- NOTE | 2021-05-02 10:39 | Electrocardiograph Report ---
[facility] Test Date: 2021-04-30 Test Time: 18:12:41 Pat Name: CARMINE MARTÍNEZ Department: Room: Gender: F Identification Clerk: [employer]GE [employer] : [id number] Requested By: IMAN VILLARREAL Order Number: [id number] Reading MD: Jv Avendaño Measurements Intervals [place] Rate: 89 P: 0 AR: 60 QRS: -18 QRSD: 98 T: 148 QT: 377 QTc: 474 Interpretive Statements Sinus rhythm Ventricular premature complex Nonspecific T abnormalities, lateral leads Compared to ECG 04/28/2021 19:51:44 Ventricular premature complex(es) now present T-wave abnormality now present Electronically Signed On 05-02-2021 10:39:11 EDT by Jv Avendaño
[2021-05-02 11:24] VITALS: BP 110/60
--- NOTE | 2021-05-02 11:53 | Event Note ---
Date: 05/02/21 89-year-old female with history of fairly advanced dementia who initially presented for not feeling well. She was seen by my colleague and underwent full work-up which revealed only mild pulmonary edema on her chest x-ray. She was medically cleared and was discharged home, however, the patient's family refused to take her. Therefore case management was consulted and the patient was moved to the behavioral health unit for her safety. The patient has demonstrated frequent alterations in mental status and becomes confused and agitated requ iring medication. We will reconcile the patient's home medications today. Vital signs have remained stable. We are currently awaiting case management assistance with disposition.
--- NOTE | 2021-05-02 12:48 | Consultation ---
History of Present Illness - Reason for Consult Consult date: 05/02/21 Reason for consult: Hallucinations - History of Present Psychiatric Illness Per ED Note: 89-year-old female with history of fairly advanced dementia who initially presented for not feeling well. She was seen by my colleague and underwent full work-up which revealed only mild pulmonary edema on her chest x- ray. She was medically cleared and was discharged home, however, the patient's family refused to take her. Therefore case management was consulted and the patient was moved to the behavioral health unit for her safety. The patient has demonstrated frequent alterations in mental status and becomes confused and agitated requiring medication. We will reconcile the patient's home medications today. Vital signs have remained stable. We are currently awaiting case management assistance with disposition. The patient presents with confusion and unable to answer questions; unable to assess. PAST PSYCHIATRIC HISTORY: Unable to assess SOCIAL HISTORY: Unable to assess REVIEW OF SYSTEMS: Unable to assess MENTAL STATUS EXAMINATION: Unable to assess Assessment and Plan (1) Unspecified Dementia Treatment plan Continue 1013 Risks, benefits and alternatives of medications discussed with the patient, questions answered and consent obtained from patient. PSYCHOTHERAPY: Supportive psychotherapy provided MEDICAL: Per primary team DELIRIUM PRECAUTIONS: Please re-orient patient frequently, keep lights on during the day, and minimize benzodiazepines and opiates as these medications could worsen patient's confusion. ALUMNI RELATIONS MANAGER: Per medical team DISPOSITION: Do not recommend acute inpatient psychiatric hospitalization at this time. FOLLOW-UP: Will sign off. Thank you for the consult. Please contact with any questions and/or concerns. Case staffed with Dr. Squires Medications and Allergies Allergies Allergy/AdvReac Type Severity Reaction Status Date / Time cefuroxime [From Ceftin] Allergy Unknown Verified 10/10/17 17:20 Penicillins Allergy Unknown Verified 10/10/17 17:20 Home Medications Medication Instructions Recorded Confirmed Last Taken Type Aspirin EC [Ecotrin] 325 mg PO QDAY #30 tablet 04/24/18 08/01/20 Unknown Rx ALPRAZolam [Xanax TAB] 0.25 mg PO BID PRN #24 tablet 08/05/20 Unknown Rx Aspirin [Aspirin BABY CHEW TAB] 81 mg PO QDAY #100 tab.chew 08/05/20 Unknown Rx Divalproex Sprinkle [Depakote 125 mg PO BID #60 capsule 08/05/20 Unknown Rx Sprinkle] Escitalopram [Lexapro] 10 mg PO DAILY #30 08/05/20 Unknown Rx Gabapentin 100 mg PO BID #60 cap 08/05/20 Unknown Rx Melatonin [Melatonin 10MG TAB] 10 mg PO HS #30 08/05/20 Unknown Rx Metoprolol [Lopressor TAB] 50 mg PO BID #60 tablet 08/05/20 Unknown Rx Valsartan [Diovan] 160 mg PO QDAY #30 tablet 08/05/20 Unknown Rx traMADoL [Ultram 50 MG tab] 25 mg PO BID PRN #60 08/05/20 Unknown Rx Active Meds: Active Medications Benzonatate (Benzonatate 100 Mg Cap) 100 mg PO TID PRN PRN Reason: Cough Last Admin: 05/01/21 15:00 Dose: 100 mg Documented by: Mental Status Exam - Vital signs Last Vital Signs Temp 96.9 F L 05/02/21 11:23 Pulse 66 05/02/21 11:23 Resp 18 05/02/21 11:23 BP 110/60 05/02/21 11:23 Pulse Ox 96 05/02/21 11:23 Results Result Diagrams: 04/30/21 15:54 04/30/21 15:54 All other labs normal.
== END 2021-05-02 16:34 | disposition home or self-care (01) ==
LOC: EEVIPCON 15:19 → ED 15:19
DX: R53.83 Other fatigue (principal); Z20.822 Contact with and (suspected) exposure to COVID-19; I10 Essential (primary) hypertension; I25.2 Old myocardial infarction; E11.9 Type 2 diabetes mellitus without complications; M19.91 Primary osteoarthritis, unspecified site; F41.9 Anxiety disorder, unspecified; Z98.890 Other specified postprocedural states; Z79.899 Other long term (current) drug therapy; Z88.0 Allergy status to penicillin; Z88.8 Allergy status to other drugs, medicaments and biological substances
CPT/HCPCS: 36415; 71045; 80053; 81001; 83880; 84484; 85025; 93005; 96372; 99285; J3486; U0003; 80320; G0480